=== PATIENT | male | born 1950 | race Caucasian/White ===

== ENCOUNTER 2018-03-09 08:32 | Inpatient (IN) | payer MEDICARE, OTHER ==
[~2018-03-09] VITALS: Ht 165.1 cm; Wt 95.3 kg
[2018-03-09] VITALS (18 sets, daily range): BP systolic 102–186; BP diastolic 48–108
[~2018-03-09 08:32] MED LIST: ASPIRIN EC81 M1 PO; COREG25 MG PO; DESYREL50 MG; DILTIAZEM 24HR180 M1 PO; EFFIENT10 MG PO; FLUOXETINE HCL40 MG PO; GLYBURIDE 5 MG T5 M1 PO; IMDUR; IMDUR 30 MG TAB30 M1 PO; KLOR-CON 1010 MEQ PO; LANTUS SUBQ; LASIX 20 MG TAB20 MG PO; LOTENSIN; LOTENSIN HCT 21 EACH PO; NITROGLYCERIN0.4 MG SUBLING; NITROQUICK0.4 MG SL; ONE DAILY COMP1 EAC1 PO; PRINIVIL20 MG PO; PROZAC 20 MG20 M1 PO; PROZAC40 MG PO; REQUIP5 MG PO; TEGRETOL XR100 MG; TEGRETOL XR200 MG PO; TOPROL XL50 MG PO; TRAZODONE HCL100 MG PO; TYLENOL325 MG PO; VERAPAMIL ER240 MG PO; XANAX 0.5 MG0.5 MG PO; ZOCOR40 MG PO
[2018-03-09 09:14] LABS: HEMATOCRIT 44.1 % (42.0-52.0); HEMOGLOBIN 14.9 gm/dL (14.0-18.0); MCH 30.7 pg (26.0-34.0); MCHC 33.9 g/dL (28.0-37.0); MCV 90.5 fL (80.0-100.0); MPV 8.3 fl. (7.2-11.1); RBC 4.87 mil/uL (4.50-6.00); RDW-CV 14.1 % (10.5-14.5); WBC 11.5 thou/uL (4.0-11.0)
[2018-03-09 09:27] LABS: ANION GAP 6 mmol/L (7-16); BUN 13 mg/dL (7-18); CALCIUM 8.8 mg/dL (8.5-10.1); CHLORIDE 97 mmol/L (98-107); CO2 30 mmol/L (21-32); CREATININE 0.7 mg/dL (0.6-1.3); GLUCOSE 201 mg/dL (70-99); SODIUM 133 mmol/L (136-145)
[2018-03-09 09:31] LABS: ALBUMIN 3.9 g/dL (3.4-5.0); ALKALINE PHOSPHATASE 77 U/L (46-116); CHOLESTEROL 247 mg/dL (<200); HDL CHOLESTEROL 34 mg/dL (>40); LDL CHOLESTEROL 164 mg/dL (<100); SGOT 16 U/L (15-37); SGPT 25 U/L (30-65); TC:HDL 7.3 Ratio (Not establshd); TOTAL BILIRUBIN 0.7 mg/dL (<0.1-1.0); TOTAL PROTEIN 8.1 g/dL (6.4-8.2); TRIGLYCERIDE 246 mg/dL (<150); VLDL 49 mg/dL (<40)
[2018-03-09 09:34] LABS: APTT 26.5 Seconds (25.0-31.3); INR 1.1; PROTIME 10.3 Seconds (9.20-11.50)
[2018-03-09 09:35] LABS: SERUM ASSESSMENT Clear
[2018-03-09] MEDS ORDERED: TRESIBA FL100 UNIT/1 SUBQ (17:16)
[2018-03-09] MEDS ORDERED: NORCO 5-325 TA1 EACH PO (17:26)
[2018-03-09] MEDS ORDERED: PSYLLIUM FIBE0.52 GM PO (17:28)
--- NOTE | 2018-03-09 17:58 | NUR ---
PT ARRIVED TO ROOM 003 VIA BED FROM DATA ENTRY TECHNICIAN AT 1610. PT ASSESSMENT CHARTED. TOLERATING 2L NC WITH O2 SATURATION 98-99%. PT REPORTS SOME ANXIETY. IV FLUIDS STOPPED AT 1610. BURKS IN PLACE. VSS AT THIS TIME. PT IS ON BEDREST FOR 6 HOURS WHICH IS UP AT 2200.
--- NOTE | 2018-03-09 23:49 | NUR ---
INITAL ASSESMENT COMPLETED AT 193. PT'S LEFT GROIN SITE SOFT, INTACT. NO BLEEDING, BRUISING OR HEMATOMA. PT REPORTED CHRONIC BACK PAIN AND ANXIETY. PT REPORTED NORMAL DOSAGE OF MEDS. DR AGUDELO NOTIFIED. RECIEVED ORDERS TO INCREASE DOSAGES ON HOME MEDS. PT GIVEN PRN XANAX AND HYDROCODONE WITH GOOD RESULTS. PT OFF BEDREST AT 2129. PT INSTRUCTED TO CALL NURSE IF BLEEDING OR SWELLING AT SITE. PT INSTRUCTED TO SPLINT GROIN SITE BEFORE COUGHING OR BEARING DOWN. PT SLEEPING AT THIS TIME. CALL LIGHT IN REACH, PT DEMONSTRATES PROPER USE.
[2018-03-10] VITALS (16 sets, daily range): BP systolic 120–179; BP diastolic 56–89
[2018-03-10 04:50] LABS: HEMATOCRIT 40.8 % (42.0-52.0); HEMOGLOBIN 13.9 gm/dL (14.0-18.0); MCH 30.5 pg (26.0-34.0); MCV 89.7 fL (80.0-100.0); MPV 7.7 fl. (7.2-11.1); RBC 4.55 mil/uL (4.50-6.00); RDW-CV 14.5 % (10.5-14.5); WBC 11.7 thou/uL (4.0-11.0)
[2018-03-10 05:15] LABS: ALBUMIN 3.4 g/dL (3.4-5.0); CALCIUM 8.5 mg/dL (8.5-10.1); CREATININE 0.7 mg/dL (0.6-1.3); POTASSIUM 3.6 mmol/L (3.5-5.1); TOTAL BILIRUBIN 0.8 mg/dL (<0.1-1.0); TOTAL PROTEIN 6.7 g/dL (6.4-8.2)
[2018-03-10 05:24] LABS: TROPONIN-I LEVEL 1.21 ng/mL (<0.06)
--- NOTE | 2018-03-10 06:42 | NUR ---
galvez catheter discontinued.
--- NOTE | 2018-03-10 10:23 | EKG ---
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: : 1950 Requested By: Reza Odom Order Number: [id number] [place] MD: Edu Brewer Measurements Intervals [place] Rate: 60 P: 51 [place]: 188 QRS: 29 QRSD: 126 T: 235 QT: 426 QTc: 426 Interpretive Statements Sinus rhythm Left atrial enlargement LVH with secondary repolarization abnormality Anterior ST elevation, probably due to LVH Compared to ECG 12/09/2015 09:05:29 Atrial abnormality now present ST (T wave) deviation now present Myocardial infarct finding no longer present Electronically Signed On 03-10-2018 10:23:05 CDT by Edu Brewer [email or web address] <ELECTRONICALLY SIGNED> By: Edu Brewer MD, FAC 03/10/18 1023 0956 0956 Edu Brewer MD, FAC /EPI
--- NOTE | 2018-03-10 10:24 | EKG ---
[place] [address] ELECTROCARDIOGRAM REPORT Name: TARA HUANG Room: [address] IN M.R.#: [id number] Admission: 03/09/18 Attend Phys: Rzea Odom MD, Discharge: Date of : 52 Report #: [id number] THIS REPORT FOR: //name// [facility] Test Date: 2018-03-09 Test Time: 15:31:52 Pat Name: TARA HUANG Department: Room: [facility] Gender: M Character Actress: : 1950 Requested By: Reza Odom Order Number: [id number] [place] MD: Edu Brewer Measurements Intervals [place] Rate: 63 P: 64 [place]: 164 QRS: 11 QRSD: 130 T: 227 QT: 435 QTc: 446 Interpretive Statements Sinus rhythm Probable left atrial enlargement LVH with secondary repolarization abnormality Anterior ST elevation, probably due to LVH Compared to ECG 12/09/2015 09:05:29 ST (T wave) deviation now present Myocardial infarct finding no longer present Electronically Signed On 03-10-2018 10:24:37 CDT by Edu Brewer [email or web address] <ELECTRONICALLY SIGNED> By: Edu Brewer MD, FACC 03/10/18 1024 1531 1531 Edu Brewer MD, FAC /EPI
--- NOTE | 2018-03-10 10:45 | NUR ---
SPOKE WITH PT AND . PT ADMITTED AFTER CATH YESTERDAY, PLAN IS TO DISCHARGE HOME TOMORROW PER NURSING. PT STATES HE HAS BEEN FAIRLY INDEP. HE USES A CANE, HE SAID HE IS 'KIND OF UNSTEADY ON MY FEET SOMETIMES.' PT SAID HE NEEDS TO PUT SOME GRAB BARS IN HIS SHOWER, 'JUST HAVEN'T GOTTEN AROUND TO DOING IT YET.' PT AND DENY ANY DISCHARGE NEEDS. DISCUSSED ROLE OF CASE MGT, WILL CONTINUE TO FOLLOW.
--- NOTE | 2018-03-10 11:13 | CARD ---
[facility] [address] [place] [address] CARDIAC CATH REPORT Name: SALTARA Room: [address] IN [facility].#: [id number] Admission: 03/09/18 Attend Phys: Reza Odom MD, Discharge: Date of : 52 Report #: [id number] THIS REPORT FOR: //name// APPROVED REPORT Study performed: 03/09/2018 12:48:58 Patient Details Patient Status: Out-Patient Room #: The patient is a 67 year-old male Event Personnel Reza Odom Scoreboard Operator, Lo Rosario RN RN, Garry Banuelos, Shan Perez (Ailyn) Lei Mueller John Slubber Hand Procedures Performed Left Heart Cath w/or w/o Coronaries; cutaneous coronary intervention with deployment of drug-eluting stents at the sites of 90% mid LAD in-stent restenosis and tandem 90% distal LAD stenoses Indication Unstable angina Risk Factors Hypercholesterolemia, Hypertension Previous Procedures/Diagnoses Previous PCI, Previous PA Admission/Lab Medications/Medications given during procedure Aspirin, Platelet Aff. Inhib., Angiomax bolus and infusion Procedure Narrative The patient was brought electively to the Cardiac Catheterization Laboratory and was prepped and draped in a sterile manner. The left femoral was infiltrated with 1% Lidocaine subcutaneous anesthesia. A 6fr Ultimum Sheath sheath was inserted into the Right Femoral Artery. Coronary angiography was performed using coronary diagnostic catheters. The left coronary system was accessed and visualized with a Diagnostic JL4 catheter. The left ventricle was accessed and visualized with a Diagnostic Straight pigtail catheter. Left ventricular/Aortic Valve gradient assessed via catheter pullback. Closure device was deployed with a [place] [address] CARDIAC CATH REPORT Name: SALTARA Room: [address]#: [id number] Admission: 03/09/18 Attend Phys: Reza Odom MD, Discharge: Date of : 52 Report #: [id number] 6Fr. Intraoperative Conscious Sedation Sedation start time: 13:10 Case end Time: 14:18 Fentanyl 25 mcg Versed 2 mg Fluoro Time: 17.8 minutes Dose: DAP [id number] cGycm2 3359 mGy Contrast Type and Amount: Visipaque 700 ml Diagnostic Cath Left Main 0 percent narrowing LAD 30% proximal LAD narrowing with 90% mid LAD in-stent restenosis and tandem 90% distal LAD stenosis Circumflex Dominant vessel with 50 and 60% proximal narrowings and tandem 90 and 80% narrowings in the first marginal branch of the circumflex with 80% stenosis of a small subbranch of the distal first marginal Right Coronary Previously defined nondominant vessel with 90% proximal narrowing Left Ventriculography The left ventricle is mildly dilated in size with contractility. The left ventricular ejection fraction is estimated to be 30%. Left ventricular wall motion abnormalities are present. There is no mitral insufficiency. The inferior wall is akinetic IVUS Intravascular Ultrasound was performed on the distal left anterior descending artery segment vessel. A Guide Catheter was used to engage the 6F XB LAD 3.5 ostium. A IG: ProwaterFlex 180CM was used. Hemodynamics The aortic pressure is 149/70 mmHg with a mean of 100 mmHg. The left ventricular pressure is 158/16 mmHg with a mean of mmHg. The left ventricular end diastolic pressure is 35 mmHg. There was no gradient across the aortic valve upon pullback. PCI Technique Lesion Anticoagulation was achieved with Angiomax. Patient was preloaded with Angiomax IV 14 mg per kg. Percutaneous coronary intervention was performed on the distal left anterior descending artery segment. The lesion stenosis prior to intervention was 90% with OBED 3 flow. A 6F XB LAD 3.5 Guide Catheter was used to engage the ostium. A IG: [place] [address] CARDIAC CATH REPORT Name: TARA HUANG Room: [address]#: [id number] Admission: 03/09/18 Attend Phys: Reza Odom MD, Discharge: Date of : 52 Report #: [id number] ProwaterFlex 180CM Interventional Guidewire was used to cross the lesion. BALLOON DILATION A Balloon catheter Mini Trek RX 2.0 X 12 was inserted and inflated up to 8atm for 11seconds. Additional Inflation: 10atm for 13seconds. Additional Inflation: 12atm for 11seconds. STENT DEPLOYMENT A drug-eluting stent Xience Alpine RX 2.25X12, 2.25x8 was inserted and inflated up to 6atm for 13seconds. Additional Inflation: 6atm for 7seconds. Final angiography reveals 0 % stenosis with OBED 3 flow. PCI Technique Lesion Percutaneous coronary intervention was performed on the distal left anterior descending artery segment. A 6F XB LAD 3.5 Guide Catheter was used to engage the ostium. A IG: ProwaterFlex 180CM Interventional Guidewire was used to cross the lesion. STENT DEPLOYMENT A drug-eluting stent Xience Alpine RX 2.25X08 was inserted and inflated up to 6atm for 11seconds. Additional Inflation: 7atm for 7seconds. Additional Inflation: 8atm for 9seconds. PCI Technique Lesion 2 Percutaneous Coronary Intervention was performed on the distal left anterior descending artery segment. Patient was preloaded with Angiomax IV 14 mg per kg. The lesion stenosis prior to intervention was 90% with OBED 3 flow. A 6F XB LAD 3.5 Guide Catheter was used to engage the ostium. A IG: ProwaterFlex 180CM Interventional Guidewire was used to cross the lesion. Balloon Dilation A Balloon catheter Mini Trek RX 2.0 X 12 was inserted and inflated up to 14atm for 12seconds. Additional Inflation: 14atm for 11seconds. Additional Inflation: 16atm for 11seconds. Stent Deployment A drug-eluting stent Xience Alpine RX 2.25X15 was inserted and inflated up to 8.00atm for 9seconds. Additional Inflation: 10atm for 11seconds. Final angiography reveals 0 % stenosis with OBED [address] [facility] [address] [place] [address] CARDIAC CATH REPORT Name: TARA HUANG Room: [address] IN M.R.#: [id number] Admission: 03/09/18 Attend Phys: Reza Odom MD, Discharge: Date of : 52 Report #: [id number] PCI Technique Lesion Percutaneous coronary intervention was performed on the mid left anterior descending artery segment. A 6F XB LAD 3.5 Guide Catheter was used to engage the ostium. A IG: ProwaterFlex 180CM Interventional Guidewire was used to cross the lesion. STENT DEPLOYMENT A drug-eluting stent Xience Alpine RX 2.5X8 was inserted and inflated up to 10atm for 9seconds. Additional Inflation: 11atm for 8seconds. PCI Technique Lesion 3 Percutaneous coronary intervention was performed on the mid LAD. The lesion stenosis prior to intervention was 90% with OBED 3 flow. Stent Deployment A drug-eluting stent Xience Alpine RX 2.5X8 was inserted and inflated up to 10atm for 10seconds. Final angiography reveals 0 % stenosis with OBED 3 flow. Conclusion #1 significant coronary artery disease characterized by the following: A 30% proximal LAD narrowing with 90% mid LAD in-stent restenosis and tandem 90% distal LAD stenosis B nondominant circumflex with 50 and 60 % proximal narrowings and tandem 90 and 80% narrowings of the first marginal branch of the circumflex C previously defined nondominant right coronary artery with 90% proximal narrowing #2 moderately severe impairment in global left ventricular systolic function, estimate ejection fraction 30% with inferior wall akinesis #3 severe elevation of left ventricular end-diastolic pressure at rest #4 successful percutaneous coronary intervention with deployment of drug-eluting stents at the sites of 90% mid and tandem 90% distal LAD [address] [address] CARDIAC CATH REPORT Name: TARA HUANG Room: [address] IN .R.#: [id number] Admission: 03/09/18 Attend Phys: Reza Odom MD, Discharge: Date of : 52 Report #: [id number] stenosis with 0% residual narrowing at both sites following stent deployment and OBED-3 flow the distal vessel. Recommendations Cardiac Risk Reduction Program Aggressive Medical Therapy Medications Administered Aspirin (any) Ticagrelor Diagnostic Cath Approved by: Reza Odom MD Date/Time: 03/10/2018 11:11:46 <ELECTRONICALLY SIGNED> By: Reza Odom MD, [facility] 03/10/18 1113 111 [id number] Odom MD, FACC /INF
--- NOTE | 2018-03-10 11:16 | NUR ---
PT REPORTED FEELING SHORT OF AIR. O2 96% ON ROOM AIR, NO NOTICIABLE LABORED BREATHING. PT PLACED ON 2L NC. PT REPORTS BREATHING HAS IMPROVED AND THAT THIS HAS BEEN HAPPENING FOR WEEKS. CARDIOLOGY NOTIFIED RECEIVED ORDER TO CONTINUE MONITORING. PT ASKED ABOUT TAKING CARVEDILOL. OVERNIGHT PT'S HEART RATE IN 50'S THIS AM PT'S HEART RATE IN 60'S. LOWER DOSAGE OF CARVEDILOL STARTED. PT SAT IN CHAIR FOR ABOUT 40 MINUTES THIS AM. WILL CONTINUE TO ENCOURAGE AMBULATION AND TO SIT IN CHAIR.
--- NOTE | 2018-03-10 14:06 | EKG ---
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: : 1950 Requested By: Reza Odom Order Number: [id number] [place] MD: Bret Florez Measurements Intervals [place] Rate: 71 P: 48 [place]: 179 QRS: 11 QRSD: 123 T: 247 QT: 402 QTc: 437 Interpretive Statements Sinus rhythm Probable left atrial enlargement LVH with secondary repolarization abnormality Anterior ST elevation, probably due to LVH Compared to ECG 03/09/2018 15:31:52 No significant changes Electronically Signed On 03-10-2018 14:05:47 CDT by Bret Florez [email or web address] <ELECTRONICALLY SIGNED> By: Bret Florez MD, [facility] 03/10/18 1405 1343 1343 Bret Florez MD, [facility] /EPI
--- NOTE | 2018-03-10 15:18 | NUR ---
PT SAT IN CHAIR FOR BREAKFAST AND LUNCH. PT AMBULATED TO SINK AND BRUSHED TEETH. URINE NOT MEASURED ONE TIME URINAL SPILT ON FLOOR.
--- NOTE | 2018-03-10 17:00 | NUR ---
PT TRANSFERED TO TELE.
[2018-03-11] VITALS: BP 121/60
[2018-03-11 04:00] VITALS: BP 162/84
--- NOTE | 2018-03-11 04:32 | NUR ---
Assumed care of patient at 1930. Patient slept well throughout the night after receiving PRN pain medication and Xanax. Patient's left groin soft and intact; no bruising noted. Patient A&O x4; SBA to bathroom with cane. Sinus rhythm noted on telemetry. Left AC IVL intact and flushed. Patient wore 2L NC last night after nursing staff checked his O2 on room air and found it to be 77%. Patient asymptomatic and was in a deep sleep at the time. O2 saturation on 2L remained 92-97%. No other complaints/complications. Call light within reach. Will continue to monitor.
[2018-03-11 05:37] LABS: CALCIUM 8.9 mg/dL (8.5-10.1); CREATININE 0.9 mg/dL (0.6-1.3); POTASSIUM 3.9 mmol/L (3.5-5.1)
[2018-03-11 08:34] VITALS: BP 141/84
[2018-03-11 08:45] VITALS: BP 121/50; BP 162/80
--- NOTE | 2018-03-11 10:00 | NUR ---
ASSUMED CARE OF PT AT 0730 AFTER RECEIVING REPORT FROM NOC ALEX CARREON. PT IS A & O X4, SITTING IN CHAIR. TECHNICAL RECRUITER IN PLACE, SR W/1ST DEG BLOCK. IV SL. GROIN SITE C/D/I. CALL LIGHT IN REACH.
[2018-03-11 10:29] VITALS: BP 162/80
[2018-03-11] MEDS ORDERED: EFFIENT10 MG PO (10:40)
--- NOTE | 2018-03-11 12:15 | D ---
[facility] [address] [place] [address] DISCHARGE SUMMARY Name: TARA HUANG Room: [address] IN M.R.#: [id number] Admission: 03/09/18 Attend Phys: Reza Odom MD, Discharge: Date of : 52 Report #: [id number] THIS REPORT FOR: //name// CC: NATTY Odom Physician staff DATE OF SERVICE: 03/11/2018 FINAL DISCHARGE DIAGNOSES: 1. Unstable angina. 2. Coronary artery disease, status post percutaneous coronary intervention of the left anterior descending. 3. Ischemic cardiomyopathy. 4. Acute on chronic combined heart failure. 5. Hypertension. 6. Hyperlipoproteinemia. 7. Obesity. PROCEDURES: 03/09/2018 -- left heart catheterization, selective coronary arteriography, percutaneous coronary intervention with deployment of one stent in the mid LAD and three in the distal LAD. HOSPITAL COURSE: The patient is a very pleasant 67-year-old male with a long history of coronary artery disease and multiple prior percutaneous coronary interventions. Recently, he has noted increasing episodes of chest tightness and is utilizing nitrates on a daily basis. The angina has been following an unstable pattern. There is underlying hypertension, hypercholesterolemia and a known ischemic cardiomyopathy. In that context, he underwent cardiac catheterization on 03/09/2018, which revealed sequential significant LAD stenosis with 90% mid LAD in-stent restenosis and tandem 90% distal left anterior descending stenoses. He also had a 50% and 60% proximal circumflex narrowing with 90% narrowing in the first marginal branch of the circumflex. Given this data, I performed percutaneous coronary intervention on the LAD, deploying one 2.5 x 8 mm Xience Alpine drug-eluting stent in the mid LAD and three 2.25 x 15, 2.25 x 12 and 2.25 x 8 drug-eluting stents, Xience Alpine in the distal LAD with 0% residual narrowing at the stented site and OBED 3 flow of the distal vessel. The patient has underlying schizophrenia and developed panic reaction during the procedure. Systemic pressure runoff in the context of ischemic cardiomyopathy with an ejection fraction of 25-30%, he developed acute heart failure. This required morphine, oxygen, sitting up and IV Lasix as well [place] [address] DISCHARGE SUMMARY Name: TARA HUANG Room: [address]#: [id number] Admission: 03/09/18 Attend Phys: Reza Odom MD, Discharge: Date of : 52 Report #: [id number] gradual resolution of his heart failure and a prompt diuresis. By later that afternoon, he was quite comfortable. He felt weak the following day, I elected to allow the day for increased activity and modest additional diuresis with the plan to discharge him on 03/11/2018. He was placed on dual antiplatelet therapy constituted by prasugrel or Effient and aspirin. DISCHARGE MEDICATIONS: Included aspirin 81 mg b.i.d., carvedilol 25 mg b.i.d., Prozac 40 mg daily, furosemide 80 mg daily, insulin degludec 40 units subcutaneously at bedtime, lisinopril 40 mg daily, multivitamins with mineral 1 tablet daily, potassium chloride 20 mEq daily, prasugrel or Effient 10 mg daily, ropinirole or Requip 4 mg at bedtime and trazodone 100 mg at bedtime. The patient is scheduled to return to see me in 2 weeks for followup. Thus he is discharged to home in satisfactory condition on 03/11/2018 on the aforementioned medications with followup in two weeks in our office. <ELECTRONICALLY SIGNED> By: Reza Odom MD, [facility] 03/11/18 1215 0854 [id number] Odom MD, [facility] /nt
--- NOTE | 2018-03-11 12:20 | NUR ---
REVIEWED PT DC INSTRUCTIONS AND MEDICATION LIST WITH PT/FAMILY. ANSWERED QUESTIONS TO PT/FAMILY SATISFACTION. SCRIPTS AND PRINTED NEW MED EDUCATION GIVEN. PT LEFT UNIT VIA WC WITH ASSIST OF NURSING STAFF. FAMILY MEMBER TO TRANSPORT PT HOME VIA PERSONAL VEHICLE.
== END 2018-03-11 12:15 | disposition home or self-care (01) | DRG 246 ==
LOC: M.CL 08:32 → M.TBA-CV 15:11 → M.ICU 15:11 → M.2W 03-10 16:52
PROVIDERS: ADMIT Internal Medicine
PROC: B2151ZZ Fluoroscopy of Left Heart using Low Osmolar Contrast (ICD-10-PCS; principal; 2018-03-10)
PROC: B240ZZ3 Ultrasonography of Single Coronary Artery, Intravascular (ICD-10-PCS; principal; 2018-03-10)
PROC: 027037Z Dilation of Coronary Artery, One Artery with Four or More Drug-eluting Intraluminal Devices, Percutaneous Approach (ICD-10-PCS; principal; 2018-03-10)
PROC: B2111ZZ Fluoroscopy of Multiple Coronary Arteries using Low Osmolar Contrast (ICD-10-PCS; principal; 2018-03-10)
PROC: 4A023N7 Measurement of Cardiac Sampling and Pressure, Left Heart, Percutaneous Approach (ICD-10-PCS; principal; 2018-03-10)
DX: T82.855A Stenosis of coronary artery stent, initial encounter (principal); I50.43 Acute on chronic combined systolic (congestive) and diastolic (congestive) heart failure; I25.110 Atherosclerotic heart disease of native coronary artery with unstable angina pectoris; E11.9 Type 2 diabetes mellitus without complications; I25.5 Ischemic cardiomyopathy; I11.0 Hypertensive heart disease with heart failure; E78.00 Pure hypercholesterolemia, unspecified; E66.9 Obesity, unspecified; Y83.8 Other surgical procedures as the cause of abnormal reaction of the patient, or of later complication, without mention of misadventure at the time of the procedure; Z68.34 Body mass index [BMI] 34.0-34.9, adult; Z79.4 Long term (current) use of insulin; Z79.82 Long term (current) use of aspirin; Z79.899 Other long term (current) drug therapy; Y92.89 Other specified places as the place of occurrence of the external cause

== ENCOUNTER 2018-04-05 08:55 | Observation (INO) | payer MEDICARE, OTHER ==
[~2018-04-05] VITALS: Ht 167.6 cm; Wt 93.9 kg
--- NOTE | ~2018-04-05 | H ---
[address] [address] HISTORY AND PHYSICAL Name: TARA HUANG Room: [address] [place]#: [id number] Admission: 04/05/18 Attend Phys: Reza Odom MD, Discharge: 04/06/18 Date of : 52 Report #: [id number] THIS REPORT FOR: //name// Please refer to the History and Physical performed in the physician's office. By: 0702Medical Records Staff ROBERTO /MATTHEW
[~2018-04-05 08:55] MED LIST changes: +NORCO 5-325 TA1 EACH PO; +PSYLLIUM FIBE0.52 GM PO; +TRESIBA FL100 UNIT/1 SUBQ
[2018-04-05 09:13] VITALS: BP 175/84
[2018-04-05 09:35] LABS: HEMATOCRIT 42.6 % (42.0-52.0); HEMOGLOBIN 14.2 gm/dL (14.0-18.0); MCHC 33.4 g/dL (28.0-37.0); MCV 89.7 fL (80.0-100.0); MPV 7.8 fl. (7.2-11.1); RBC 4.75 mil/uL (4.50-6.00); WBC 9.9 thou/uL (4.0-11.0)
[2018-04-05 09:48] LABS: ANION GAP 5 mmol/L (7-16); BUN 14 mg/dL (7-18); CALCIUM 8.9 mg/dL (8.5-10.1); CHLORIDE 101 mmol/L (98-107); CO2 28 mmol/L (21-32); CREATININE 0.8 mg/dL (0.6-1.3); GLUCOSE 154 mg/dL (70-99); POTASSIUM 3.6 mmol/L (3.5-5.1); SODIUM 134 mmol/L (136-145)
[2018-04-05 09:50] LABS: PROTIME 10.7 Seconds (9.20-11.50)
[2018-04-05 09:53] LABS: ALBUMIN 3.6 g/dL (3.4-5.0); ALKALINE PHOSPHATASE 81 U/L (46-116); CHOLESTEROL 215 mg/dL (<200); HDL CHOLESTEROL 26 mg/dL (>40); LDL CHOLESTEROL 138 mg/dL (<100); SERUM ASSESSMENT Clear; SGOT 14 U/L (15-37); SGPT 22 U/L (30-65); TC:HDL 8.3 Ratio (Not establshd); TOTAL BILIRUBIN 0.4 mg/dL (<0.1-1.0); TOTAL PROTEIN 7.5 g/dL (6.4-8.2); TRIGLYCERIDE 257 mg/dL (<150); VLDL 51 mg/dL (<40)
[2018-04-05 11:44] VITALS: BP 157/75
[2018-04-05 12:15] VITALS: BP 163/92
[2018-04-05 13:09] VITALS: BP 166/83
[2018-04-05 14:50] VITALS: BP 172/92
[2018-04-05] MEDS ORDERED: NORCO 10-325 T1 EACH PO (15:43)
--- NOTE | 2018-04-05 17:26 | EKG ---
[place] [address] ELECTROCARDIOGRAM REPORT Name: TARA HUANG Room: [address] M.R.#: [id number] Admission: 04/05/18 Attend Phys: Reza Odom MD, Discharge: Date of : 52 Report #: [id number] THIS REPORT FOR: //name// [facility] Test Date: 2018-04-05 Test Time: 10:04:08 Pat Name: TARA HUANG Department: Room: 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: : 1950 Requested By: Reza Odom Order Number: [id number] [place] MD: Reza Odom Measurements Intervals [place] Rate: 57 P: 44 [place]: 201 QRS: 16 QRSD: 121 T: 263 QT: 436 QTc: 425 Interpretive Statements Sinus rhythm Probable left ventricular hypertrophy Nonspecific T abnormalities, inferior leads Compared to ECG 03/10/2018 13:43:16 T-wave abnormality now present Myocardial infarct finding now present Early repolarization no longer present ST (T wave) deviation still present Electronically Signed On 04-05-2018 17:26:03 CDT by Reza Odom [email or web address] <ELECTRONICALLY SIGNED> By: Reza Odom MD, [facility] 04/05/18 1726 1004 1004 Reza Odom MD, [facility] /EPI
--- NOTE | 2018-04-05 17:29 | EKG ---
[place] [address] ELECTROCARDIOGRAM REPORT Name: SALTARA Carmona Room: [address] M.R.#: [id number] Admission: 04/05/18 Attend Phys: Reza Odom MD, Discharge: Date of : 52 Report #: [id number] THIS REPORT FOR: //name// [facility] Test Date: 2018-04-05 Test Time: 11:57:15 Pat Name: TARA HUANG Department: Room: [facility] Gender: M Hospitality Ambassador: : 1950 Requested By: Reza Odom Order Number: [id number] [place] MD: Reza Odom Measurements Intervals [place] Rate: 58 P: 46 [place]: 198 QRS: 19 QRSD: 125 T: 265 QT: 410 QTc: 403 Interpretive Statements Sinus rhythm Left atrial enlargement LVH with secondary repolarization abnormality Anterior ST elevation, probably due to LVH Compared to ECG 03/10/2018 13:43:16 No significant changes Electronically Signed On 04-05-2018 17:28:56 CDT by Reza Odom [email or web address] <ELECTRONICALLY SIGNED> By: Reza Odom MD, [facility] 04/05/18 1728 1157 1157 Reza Odom MD, [facility] /EPI
[2018-04-05 20:00] VITALS: BP 185/81
[2018-04-06] VITALS: BP 176/88
[2018-04-06 03:57] VITALS: BP 158/82
[2018-04-06 04:35] LABS: HEMATOCRIT 42.1 % (42.0-52.0); HEMOGLOBIN 13.9 gm/dL (14.0-18.0); MCH 30.1 pg (26.0-34.0); MPV 7.8 fl. (7.2-11.1); RBC 4.63 mil/uL (4.50-6.00); RDW-CV 13.8 % (10.5-14.5); WBC 11.8 thou/uL (4.0-11.0)
[2018-04-06 05:17] LABS: ALBUMIN 3.7 g/dL (3.4-5.0); ALKALINE PHOSPHATASE 75 U/L (46-116); ANION GAP 7 mmol/L (7-16); BUN 10 mg/dL (7-18); CALCIUM 8.8 mg/dL (8.5-10.1); CHLORIDE 104 mmol/L (98-107); CO2 30 mmol/L (21-32); CREATININE 0.6 mg/dL (0.6-1.3); GLUCOSE 129 mg/dL (70-99); POTASSIUM 4.1 mmol/L (3.5-5.1); SGOT 11 U/L (15-37); SGPT 21 U/L (30-65); SODIUM 141 mmol/L (136-145); TOTAL BILIRUBIN 0.6 mg/dL (<0.1-1.0); TOTAL PROTEIN 7.2 g/dL (6.4-8.2); TROPONIN-I LEVEL <0.06 ng/mL (<0.06)
[2018-04-06 10:17] VITALS: BP 179/90
--- NOTE | 2018-04-06 16:46 | EKG ---
[place] [address] ELECTROCARDIOGRAM REPORT Name: TARA HUANG [address] [id number] Admission: 04/05/18 Attend Phys: Reza Odom MD, Discharge: 04/06/18 Date of : 52 Report #: [id number] THIS REPORT FOR: //name// [facility] Test Date: 2018-04-06 Test Time: 08:54:18 Pat Name: TARA HUANG Department: Room: [facility] Gender: M Supervisor Crack Off: : 1950 Requested By: Reza Oodm Order Number: [id number] [place] MD: Reza Odom Measurements Intervals [place] Rate: 72 P: 37 [place]: 171 QRS: 31 QRSD: 127 T: 262 QT: 388 QTc: 425 Interpretive Statements Sinus rhythm LVH with secondary repolarization abnormality Anterior ST elevation, probably due to LVH Compared to ECG 04/05/2018 11:57:15 Atrial abnormality no longer present ST (T wave) deviation still present Electronically Signed On 04-06-2018 16:45:56 CDT by Reza Odom [email or web address] <ELECTRONICALLY SIGNED> By: Reza Odom MD, [facility] 04/06/18 1645 0854 0854 Reza Odom MD, [facility] /EPI
--- NOTE | 2018-04-06 18:35 | D ---
[facility] [address] [place] [address] DISCHARGE SUMMARY Name: SALTARA Room: [address] [place]#: [id number] Admission: 04/05/18 Attend Phys: Reza Odom MD, Discharge: 04/06/18 Date of : 52 Report #: [id number] THIS REPORT FOR: //name// CC: NATTY [facility] Reza Odom Physician staff DATE OF SERVICE: 04/06/2018 FINAL DISCHARGE DIAGNOSES: 1. Unstable angina. 2. Coronary artery disease, status post multiple prior percutaneous coronary interventions with percutaneous coronary intervention to the circumflex on 04/05/2018. 3. Ischemic cardiomyopathy. 4. Chronic combined heart failure. 5. Hypertension. 6. Hyperlipoproteinemia. 7. Obesity. 8. Chronic obstructive pulmonary disease. PROCEDURES: 04/06/2018 - left heart catheterization, selective coronary arteriography, percutaneous coronary intervention to the circumflex with deployment of 3 drug-eluting stents. HOSPITAL COURSE: The patient is a very pleasant 67-year-old male with complex coronary artery disease and an ischemic cardiomyopathy in that context. Approximately, 1 month ago, he underwent complex stenting of the LAD with a good angiographic result. The circumflex was not approached in that setting. His anginal pattern has improved, but does persist to some degree. He was noted to have significant proximal and first marginal stenosis at the prior catheterization. He was readmitted on 04/05/2018 in the context of recurrent angina, underwent catheterization, which revealed widely patent LAD stents. He had 90% proximal first marginal with 80% mid first marginal narrowing and 80% proximal circumflex narrowing. I deployed 2 drug-eluting stents in the first marginal and one 2.75 x 12-mm New Era Integrity drug-eluting stent in the proximal circumflex with 0, 10 and 0% residual narrowing and OBED 3 flow of the distal circumflex. The patient did well post-procedurally. There was good hemostasis at the left femoral site of catheterization. Laboratory data on 04/06/2018 revealed sodium 141, potassium 4.1, BUN 10, creatinine 0.6. Troponin less than 0.06, hemoglobin 13.9, white blood cell count 11,800 with 268,000 platelets. DISCHARGE MEDICATIONS: He ambulated in the hall[place] [address] DISCHARGE SUMMARY Name: TARA HUANG Room: [address] [place]#: [id number] Admission: 04/05/18 Attend Phys: Reza Odom MD, Discharge: 04/06/18 Date of : 52 Report #: [id number] discharged to home on the following medications: Aspirin 81 mg b.i.d., carvedilol 25 mg b.i.d., fluoxetine 40 mg daily, furosemide 80 mg daily, insulin degludec 40 units subcutaneously at bedtime, lisinopril 40 mg daily, multivitamin with minerals 1 tablet daily, potassium 20 mEq daily, prasugrel or Effient 10 mg daily, ropinirole 4 mg at bedtime, trazodone 100 mg at bedtime, alprazolam 0.5 mg every 6 hours as needed, acetaminophen 650 mg every 6 hours as needed, hydrocodone/acetaminophen 1 tablet every 6 hours as needed, p.r.n. sublingual nitroglycerin, and psyllium fiber 0.52 grams daily on a p.r.n. basis. The patient is scheduled to return to see me on 05/30/2018 at 1330. He is discharged to home in stable condition on the aforementioned medications with followup as iterated above. <ELECTRONICALLY SIGNED> By: Reza Odom MD, FACC 04/06/18 1835 1721 1750Reza Odom MD, FACC /nt
--- NOTE | 2018-04-13 10:09 | CARD ---
[facility] [address] [place] [address] CARDIAC CATH REPORT Name: TARA HUANG Room: [address] [place]#: [id number] Admission: 04/05/18 Attend Phys: Reza Odom MD, Discharge: 04/06/18 Date of : 52 Report #: [id number] THIS REPORT FOR: //name// APPROVED REPORT Study performed: 04/05/2018 09:05:31 Patient Details Patient Status: Out-Patient Room #: The patient is a 67 year-old male Event Personnel Dr. Odom Procedures Performed Left heart catheterization selective coronary arteriographyy and percutaneous coronary intervention with stenting of the proximal circumflex and first marginal branch of the circumflex Indication Unstable angina Risk Factors Hypercholesterolemia, Coronary Artery DiseaseHypertension Previous Procedures/Diagnoses Previous PCI, Previous CT Admission/Lab Medications/Medications given during procedure Aspirin, Platelet Aff. Inhib., Angiomax bolus and infusion Procedure Narrative The patient was brought electively to the Cardiac Catheterization Laboratory and was prepped and draped in a sterile manner. The left femoral was infiltrated with 1% Lidocaine subcutaneous anesthesia. A 6 Portuguese sheath was inserted into the left femoral artery. Coronary angiography was performed using coronary diagnostic catheters. The left coronary system was accessed and visualized with a Diagnostic catheter. The left ventricle was accessed and visualized with a Diagnostic catheter. Left ventricular/Aortic Valve gradient assessed via catheter pullback. Pre-demployment femoral angiogram was performed . Closure device was deployed with a 6 Fr Angioseal. [place] [address] CARDIAC CATH REPORT Name: SALTARA Mathew Room: [address] [place]#: [id number] Admission: 04/05/18 Attend Phys: Reza Odom MD, Discharge: 04/06/18 Date of : 52 Report #: [id number] Diagnostic Cath Left Main 0% narrowing LAD 30% proximal LAD narrowing with widely patent mid LAD stents and 40% distal LAD narrowing Circumflex 50% proximal circumflex stenosis with 80% narrowing just distal to this and tandem 90 and 80% first marginal stenosis Right Coronary Nondominant vessel with 90% proximal narrowing as per prior angiogram Left Ventriculography Left Ventriculography was not performed. Hemodynamics The aortic pressure is 130/70 mmHg with a mean of mmHg. The left ventricular pressure is 18 mmHg with a mean of mmHg. There was no gradient across the aortic valve upon pullback. PCI Technique Lesion Anticoagulation was achieved with Angiomax. Percutaneous coronary intervention was performed on the proximal circumflex. The lesion stenosis prior to intervention was 80% with OBED 3 flow. BALLOON DILATION A Balloon catheter 2.75 x 12 NC trek was inserted and inflated up to 16atm for 10seconds. STENT DEPLOYMENT A 2.75 x 8 margarita stent drug-eluting was inserted and inflated up to 12atm for 10seconds. Final angiography reveals 0 % stenosis with OBED 3 flow. PCI Technique Lesion 2 Percutaneous Coronary Intervention was performed on the first marginal branch of the circumflex. The lesion stenosis prior to intervention was 90% with OBED 3 flow. Stent Deployment A drug-eluting stent 2.0 by 8, 2.0 x 15 margarita was inserted and inflated up to 12atm for 10seconds. Final angiography reveals 0 % stenosis with OBED 3 flow. Conclusion #1 significant coronary [place] [address] CARDIAC CATH REPORT Name: TARA HUANG Room: [address] [place]#: [id number] Admission: 04/05/18 Attend Phys: Reza Odom MD, Discharge: 04/06/18 Date of : 52 Report #: [id number] following: A 30% proximal LAD narrowing with widely pain mid and distal LAD stents with 40% distal LAD narrowing B dominant circumflex with 50% proximal narrowing followed by 80% proximal stenosis with tandem 90 and 80% first marginal narrowings C previously defined nondominant right coronary with 90% proximal narrowing #2 modest elevation of left ventricular end-diastolic pressure at rest #3 successful percutaneous coronary intervention with deployment of a drug-eluting stent at the site of 80% proximal circumflex stenosis with 0% residual narrowing #4 successful percutaneous coronary intervention with deployment of sequential drug-eluting stents at the sites of 90 and 80% first marginal narrowing with 0% residual narrowing at both sites following stent deployment and OBED-3 flow to the distal vessel Recommendations Cardiac Risk Reduction Program Aggressive Medical Therapy Medications Administered Aspirin (any) Prasugrel Diagnostic Cath Approved by: Reza Odom MD Date/Time: 04/13/2018 10:07:57 <ELECTRONICALLY SIGNED> By: Reza Odom MD, [facility] 04/13/18 1009 1009 1009Reza Odom MD, [facility] /INF
== END 2018-04-06 13:20 | disposition home or self-care (01) ==
LOC: M.CL 08:55 → M.2W 11:24 → M.TBA-CV 11:24 → M.2W 14:54
PROVIDERS: ADMIT Internal Medicine
DX: I25.110 Atherosclerotic heart disease of native coronary artery with unstable angina pectoris (principal); I11.0 Hypertensive heart disease with heart failure; I50.40 Unspecified combined systolic (congestive) and diastolic (congestive) heart failure; J44.9 Chronic obstructive pulmonary disease, unspecified; E78.5 Hyperlipidemia, unspecified; I25.5 Ischemic cardiomyopathy; E66.9 Obesity, unspecified

== ENCOUNTER 2018-11-22 08:50 | Inpatient (IN) | payer MEDICARE, OTHER ==
[~2018-11-22] VITALS: Ht 167.6 cm; Wt 95.3 kg
[2018-11-22] VITALS (16 sets, daily range): BP systolic 110–198; BP diastolic 54–104
[~2018-11-22 08:50] MED LIST changes: +NORCO 10-325 T1 EACH PO
[2018-11-22 09:53] LABS: HEMATOCRIT 38.9 % (42.0-52.0); MCH 29.2 pg (26.0-34.0); MCHC 33.5 g/dL (28.0-37.0); MCV 87.1 fL (80.0-100.0); RBC 4.47 mil/uL (4.50-6.00); RDW-CV 14.2 % (10.5-14.5); WBC 11.9 thou/uL (4.0-11.0)
[2018-11-22 10:09] LABS: ANION GAP 7 mmol/L (7-16); BUN 17 mg/dL (7-18); CALCIUM 9.1 mg/dL (8.5-10.1); CHLORIDE 101 mmol/L (98-107); CHOLESTEROL 207 mg/dL (<200); CO2 29 mmol/L (21-32); CREATININE 0.9 mg/dL (0.6-1.3); GLUCOSE 249 mg/dL (70-99); HDL CHOLESTEROL 26 mg/dL (>40); LDL CHOLESTEROL 140 mg/dL (<100); POTASSIUM 3.5 mmol/L (3.5-5.1); SERUM ASSESSMENT Clear; SODIUM 137 mmol/L (136-145); TRIGLYCERIDE 206 mg/dL (<150); VLDL 41 mg/dL (<40)
[2018-11-22] MEDS ORDERED: FLONASE 0.05%50 MCG NASAL (10:17)
[2018-11-22] MEDS ORDERED: COLACE100 MG PO (10:17)
[2018-11-22] MEDS ORDERED: MULTI VITAMIN1 EACH PO (10:17)
[2018-11-22 10:23] LABS: APTT 27.4 Seconds (25.0-31.3); PROTIME 10.5 Seconds (9.20-11.50)
--- NOTE | 2018-11-22 13:48 | CARD ---
[facility] [place] [facility] [address] [place] [address] CARDIAC CATH REPORT Name: TARA HUANG Room: [address] [place]#: [id number] Admission: 11/22/18 Attend Phys: Reza Odom MD, Discharge: Date of : 52 Report #: [id number] THIS REPORT FOR: //name// APPROVED REPORT Study performed: 11/22/2018 10:01:40 Patient Details The patient is a 67 year-old male Event Personnel Reza Odom Vamper, Radhika Nick RN Soda Fountain Clerk, Abisai WangIS Monitor, Shan Perez (R) Scrub Procedures Performed Left Heart Cath w/or w/o Coronaries [id number] [facility] JAH Place w/wo Plasty Single CIRC [id number] JAH Place w/wo Plasty Addl BR OM 1 C9601 DESADDL Indication Unstable angina Risk Factors Hypercholesterolemia, Hypertension, Diabetes Admission/Lab Medications/Medications given during procedure Aspirin, Platelet Aff. Inhib., Angiomax bolus and infusion Procedure Narrative The patient was brought electively to the Cardiac Catheterization Laboratory and was prepped and draped in a sterile manner. The left femoral was infiltrated with 2% Lidocaine subcutaneous anesthesia. A [place] 6 FR sheath was inserted into the LFA. Coronary angiography was performed using coronary diagnostic catheters. The right coronary system was accessed and visualized with a JR4 catheter. The left coronary system was accessed and visualized with a JL4 catheter. The left ventricle was accessed and visualized with a Straight PIG catheter. Left ventricular/Aortic Valve gradient assessed via catheter pullback. Pre-demployment femoral angiogram was performed . Closure device was deployed with a Fr Angioseal STS 6Fr. The patient tolerated the procedure well and there were no complications associated with the procedure. There was no hematoma. Intraoperative Conscious Sedation Fentanyl 100 [place] [address] CARDIAC CATH REPORT Name: TARA HUANG Room: [address] [place]#: [id number] Admission: 11/22/18 Attend Phys: Reza Odom MD, Discharge: Date of : 52 Report #: [id number] Dose: 3157 mGy Contrast Type and Amount: Visipaque 380 ml Diagnostic Cath Left Main 0% narrowing LAD 40% ostial proximal narrowing with 60% mid vessel in-stent narrowing Circumflex 50% ostial proximal narrowing with 90% stenosis of the proximal portion extending into the prominent first marginal branch with 80% stenosis of the mid circumflex Right Coronary 100% previously defined proximal occlusion Hemodynamics The aortic pressure is 156/61 mmHg with a mean of 75 mmHg. The left ventricular pressure is 153/13 mmHg with a mean of mmHg. The left ventricular end diastolic pressure is 28 mmHg. There was no gradient across the aortic valve upon pullback. PCI Technique Lesion Anticoagulation was achieved with Angiomax. Patient was preloaded with Angiomax IV 14 ml. Percutaneous coronary intervention was performed on the mid circumflex artery segment. The lesion stenosis prior to intervention was 80% with OBED 3 flow. A 6F XB LAD 3.5 Guide Catheter was used to engage the ostium. A IG: ProwaterFlex 180CM Interventional Guidewire was used to cross the lesion. BALLOON DILATION A Balloon catheter Trek RX 2.5 X 12 was inserted and inflated up to 14.00atm for 17seconds. STENT DEPLOYMENT A stent Stanton RX Stent 2.5X12mm,2.25x8 was inserted and inflated up to 16.00atm for 6seconds. Final angiography reveals 10 % stenosis with OBED 3 flow. PCI Technique Lesion 2 Percutaneous Coronary Intervention was performed on the first obtuse marginal branch segment. The lesion stenosis prior to intervention was 90% with OBED 3 flow. Balloon Dilation A Balloon catheter Trek RX 2.5 X 12 was inserted and inflated up to 15.00atm for 11seconds. [place] [address] CARDIAC CATH REPORT Name: SALFRANCHESCATARA Mathew Room: [address] [place]#: [id number] Admission: 11/22/18 Attend Phys: Reza Odom MD, Discharge: Date of : 52 Report #: [id number] Stent Deployment A stent Guru RX Stent 2.76B06te was inserted and inflated up to 16.00atm for 12seconds. Final angiography reveals 0 % stenosis with OBED 3 flow. Conclusion #1 significant multivessel coronary arteries characterized by the following: A 40% ostial proximal LAD narrowing with widely patent stents throughout the vessel and 60% mid vessel in-stent narrowing B codominant circumflex with 50% ostial proximal narrowing and 90% narrowing of the proximal portion extending into a prominent first marginal branch with 80% mid vessel stenosis C 100% previously defined total occlusion of the right coronary artery proximally #2 mild systemic systolic hypertension with moderately severe elevation of left ventricular end-diastolic pressure at rest #3 successful percutaneous coronary intervention with deployment of sequential drug-eluting stents at the site of 80% mid circumflex stenosis with 10% residual narrowing #5 successful percutaneous coronary intervention with deployment of drug-eluting stent from the proximal right artery into a prominent first marginal branch with 0% residual narrowing and OBED-3 flow to the distal vessel Recommendations Cardiac Risk Reduction Program Aggressive Medical Therapy Medications Administered Aspirin ([place]) [place] [address] CARDIAC CATH REPORT Name: SALTARA Mathew [address]#: [id number] Admission: 11/22/18 Attend Phys: Reza Odom MD, Discharge: Date of : 52 Report #: [id number] Diagnostic Cath Approved by: Reza Odom MD Date/Time: 11/22/2018 13:46:23 <ELECTRONICALLY SIGNED> By: Reza Odom MD, [facility] 11/22/18 1348 1348 1348Reza Odom MD, [facility] /INF
--- NOTE | 2018-11-22 14:43 | EKG ---
[place] [address] ELECTROCARDIOGRAM REPORT Name: SALTARA Carmona Room: [address]R.#: [id number] Admission: 11/22/18 Attend Phys: Reza Odom MD, Discharge: Date of : 52 Report #: [id number] THIS REPORT FOR: //name// [facility] Test Date: 2018-11-22 Test Time: 09:42:54 Pat Name: TARA HUANG Department: Room: [facility] Gender: M Scale Adjuster: : 1950 Requested By: Reza Odom Order Number: [id number] Reading MD: Reza Odom Measurements Intervals [place] Rate: 61 P: 53 DE: 188 QRS: 21 QRSD: 125 T: 241 QT: 433 QTc: 437 Interpretive Statements Sinus rhythm Consider left atrial enlargement LVH Compared to ECG 04/06/2018 08:54:18 Left ventricular hypertrophy persists Early repolarization no longer present ST (T wave) deviation persists Electronically Signed On 11-22-2018 14:42:52 CDT by Reza Odom [email or web address] <ELECTRONICALLY SIGNED> By: Reza Odom MD, [facility] 11/22/18 1442 0942 0942 Reza Odom MD, [facility] /EPI
--- NOTE | 2018-11-22 14:44 | EKG ---
[place] [address] ELECTROCARDIOGRAM REPORT Name: TARA HUANG Room: [address] M.R.#: [id number] Admission: 11/22/18 Attend Phys: Reza Odom MD, Discharge: Date of : 52 Report #: [id number] THIS REPORT FOR: //name// [facility] Test Date: 2018-11-22 Test Time: 13:30:04 Pat Name: TARA HUANG Department: Room: [facility] Gender: M Hand Profiler: : 1950 Requested By: Reza Odom Order Number: [id number] Syed MD: Reza Odom Measurements Intervals [place] Rate: 60 P: 90 SC: 203 QRS: 15 QRSD: 121 T: 225 QT: 450 QTc: 450 Interpretive Statements Sinus rhythm IVCD, consider LVH Compared to ECG 04/06/2018 08:54:18 Left ventricular hypertrophy persists Early repolarization no longer present ST (T wave) deviation persists Electronically Signed On 11-22-2018 14:44:02 CDT by Reza Odom [email or web address] <ELECTRONICALLY SIGNED> By: Reza Odom MD, [facility] 11/22/18 1444 1330 1330 Reza Odom MD, [facility] /EPI
--- NOTE | 2018-11-22 15:22 | NUR ---
RECEIVED REPORT AND ASSUMED CARE OF PT AT 1400.PT RECEIVED FROM PROGRAM SPECIALIST.TRACING SR ON THE MONITOR.IV PATENT WITH FLUID INFUSING.ON RA.A/OX4.RT GROIN CATH CLEAN DRY AND INTACT.NI HAEMOTOMA.NO BLEEDING AND PAIN.VSS.ALL ADMISSION PROCESS COMPLETED.AND PAPER SIGNED.PT COMPLAINS OF ANXIETY.MEDS GIVEN PER ORDER.PT EDUCATED ON BLEEDING PECAUTIONS AND POSITIONING OF CATH SITE.PT HAS REST LEG SYNDROME.TAKES MEDICATION FOR THAT.NO ANY OTHER SKIN ISSUES.CALL LIGHT AND FALL PRECAUTIONS IN PLACE.WILL CONTINUE TO MONITOR.
--- NOTE | 2018-11-22 17:24 | NUR ---
PT IS A/OX4.TRACING SR ON THE MONITOR.IV PATENT WITH FLUID INFUSING.POST CATH VS MONITORED AND CHARTED.CATH SITE CLEAN DRY AND INTACT.PT EDUCATED ON IMMOBILIZATION OF CATH SITE.MED GIVEN TO RELIEVE ANXIETY PER ORDER.HOURLY ROUNDING COMPLETED.CALL LIGHT AND FALL PRECAUTIONS IN PLACE.WILL CONTINUE TO MONITOR.
--- NOTE | 2018-11-22 17:39 | NUR ---
I have reviewed the documentation by ALEX ASTUDILLO from 1405 to 793 and I concur with it.
[2018-11-22] MEDS ORDERED: REQUIP XL8 MG PO (21:18)
[2018-11-23] VITALS (9 sets, daily range): BP systolic 125–198; BP diastolic 58–95
--- NOTE | 2018-11-23 05:06 | NUR ---
ASSUMED PT CARE AT APPROX 1930. PT IS AWAKE AND ORIENTED X4. VSS. 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 PT DENIES CHEST PAIN. POST CARDIAC CATH INSERTION SITE INTACT, WITH SMALL BRUISING NOTED AND A SMALL AMOUNT OF SEROUSANGUINOUS DISCHARGE ON THE GAUZE-SIZE REMAINED THE SAME THROUGHOUT THE SHIFT. SOA NOTED AT APPROX 0400, LUNG SOUNDS DIMINISHED AT THE BASES, MILD WHEEZING NOTED, BLOOD TINGED WHITE SPUTUM NOTED. BP IS 188/92mmhg. O2 SAT 90-91%. IVF STOPPED, MAINTAINED ON HIGH BACK REST, ENCOURAGED TO TAKE SLOW DEEP BREATHS, PLACED ON O2 SUPPORT AT 1L/NC. DR JASMINE INFORMED. NO NEW ORDERS RECIEVED. PT WAS ABLE TO REST A LITTLE BIT, AT APPROX 0430 BP: 164/78, O2 SAT 96% HR 76. PT CLOSELY MONITORED, HOURLY ROUNDING DONE FOR PT SAFETY. CALL LIGHT WITHIN REACH.
[2018-11-23 05:36] LABS: HEMATOCRIT 38.1 % (42.0-52.0); HEMOGLOBIN 13.2 gm/dL (14.0-18.0); MCHC 34.5 g/dL (28.0-37.0); MCV 86.9 fL (80.0-100.0); MPV 8.1 fl. (7.2-11.1); RBC 4.39 mil/uL (4.50-6.00); RDW-CV 14.4 % (10.5-14.5); WBC 9.5 thou/uL (4.0-11.0)
[2018-11-23 06:03] LABS: ALBUMIN 3.3 g/dL (3.4-5.0); CALCIUM 8.9 mg/dL (8.5-10.1); CREATININE 0.7 mg/dL (0.6-1.3); POTASSIUM 3.5 mmol/L (3.5-5.1); TOTAL BILIRUBIN 0.6 mg/dL (<0.1-1.0); TROPONIN-I LEVEL 0.33 ng/mL (<0.06)
--- NOTE | 2018-11-23 10:57 | EKG ---
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: : 1950 Requested By: Reza Odom Order Number: [id number] Reading MD: Edu Brewer Measurements Intervals [place] Rate: 70 P: 47 WI: 184 QRS: -4 QRSD: 122 T: 209 QT: 408 QTc: 441 Interpretive Statements Sinus rhythm Probable left atrial enlargement IVCD, consider atypical LBBB Baseline wander in lead(s) II,aVF Compared to ECG 11/22/2018 13:30:04 No significant changes Electronically Signed On 11-23-2018 10:57:35 CDT by Edu Brewer [email or web address] <ELECTRONICALLY SIGNED> By: Edu Brewer MD, [facility] 11/23/18 1057 0949 0949 Edu Brewer MD, [facility] /EPI
--- NOTE | 2018-11-23 11:29 | NUR ---
RECEIVED REPORT AND ASSUMED CARE OF PT AT 0730.PT IS A/OX4.TRACING SR ON THE MONITOR.IV PATENT AND SALINE LOCKED.ON 2L NC.PT SOUNDS WEEZY AND COMPLAINTS OF SOA.DR NOTIFIED AND IV LASIX AND POTTASIUM ONE TIME DOSE GIVEN PER ORDER.PT LOOKS MUCH BETTER THAN BEFORE.CATH SITE CLEAN DRY AND INTACT.BOOD PRESSURE PILLS GIVEN FOR HIGH BP.CALL LIGHT AND FALL PRECAUTIONS IN PLACE.WILL CONTINUE TO MONITOR.
[2018-11-23] MEDS ORDERED: ATORVASTATIN CA40 MG PO (12:50)
--- NOTE | 2018-11-23 17:56 | NUR ---
PT IS A/OX4.TRACING SR ON THE MONITOR.IV PATENT AND SALINE LOCKED.IV LASIX 2 TIME DOSE PER ORDER GIVEN FOR FLUID OVERLOAD.ANTIHYPERTENSIVE PRN MEDS GIVEN FOR HIGH BLOOD PRESSURE ALOND WITH THE SCHEDULED MEDS.PT LOOKS BETTER THAN THIS MORNING.NO COMPLAINTS OF CHEST PAIN.AND SOA.COMPLAINTS OF ANXIETY AND PAIN ON BACK.MANAGED BY MEDS.HRLY ROUNDING DONE FOR SAFETY.POSSIBLE DISCHARGE TOMORROW PER BIODIESEL OPERATIONS MANAGER.WILL CONTINUE TO MONITOR.
[2018-11-24 00:02] VITALS: BP 136/69
--- NOTE | 2018-11-24 03:27 | NUR ---
ASSUMED PT CARE AT APPROX 1930. PT IS AWAKE AND ORIENTED X4. VSS. GAS PLANT WORKER IN PLACE TRACING SR. REASSESSMENT DONE AND CHARTED. PT DENIES SOA. PT C/O BACK PAIN RELIEVED BY PAIN MEDS GIVEN PER SEP. PT WAS ABLE TO SLEEP MOST OF THE NIGHT. CALL LIGHT WITHIN REACH. HOURLY ROUNDING DONE FOR PT SAFETY.
[2018-11-24 04:00] VITALS: BP 128/82
[2018-11-24 04:52] LABS: CALCIUM 8.8 mg/dL (8.5-10.1); CREATININE 0.9 mg/dL (0.6-1.3); POTASSIUM 3.7 mmol/L (3.5-5.1)
[2018-11-24 11:15] VITALS: BP 198/95
--- NOTE | 2018-11-25 11:27 | D ---
[facility] [address] [place] [address] DISCHARGE SUMMARY Name: TARA HUANG Room: [address] [place] M.R.#: [id number] Admission: 11/23/18 Attend Phys: Reza Odom MD, Discharge: 11/24/18 Date of : 52 Report #: [id number] THIS REPORT FOR: //name// CC: NATTY Odom DATE OF SERVICE: 11/24/2018 FINAL DISCHARGE DIAGNOSES: 1. Unstable angina. 2. Coronary artery disease. 3. Status post percutaneous coronary intervention to the circumflex. 4. Hypertension. 5. Hyperlipidemia. 6. Type 2 diabetes. 7. Ischemic cardiomyopathy. PROCEDURES: 11/22/2018 - left heart catheterization, selective coronary arteriography, percutaneous coronary intervention with deployment of sequential drug-eluting stents in the posterior division of the circumflex and a single drug-eluting stent in the proximal circumflex extending into a prominent marginal branch. The patient is a very pleasant 67-year-old male with hypertension, hyperlipidemia, diabetes and complex coronary artery disease with an ischemic cardiomyopathy in that context. Recently, he has noted increased chest discomfort and dyspnea with modest activity, suggesting a pattern of angina, which has been unstable. In that context, I performed cardiac catheterization on 11/22/2018 and that study revealed 40% ostial proximal LAD narrowing with 50% ostial proximal circumflex narrowing, 90% narrowing of the circumflex extending into the first marginal and 80% mid circumflex narrowing. The right coronary artery has been previously defined to be totally occluded. In this context, I performed percutaneous coronary intervention on the mid circumflex, deploying two drug-eluting stents with a 10% residual narrowing and percutaneous coronary intervention in the first marginal from the proximal circumflex into the first marginal with 0% residual narrowing. The patient's troponin angeline inconsequentially to 0.33. With the contrast and volume infused, he developed a modest heart failure, which was responsive to diuresis. I did diurese him on the day of 11/23/2018 and he was discharged to home on 11/24/2018 on the following medications: Aspirin 81 mg b.i.d., carvedilol 25 mg b.i.d., docusate 100 mg b.i.d., Prozac 60 mg daily, fluticasone 1 spray b.i.d., furosemide 80 mg daily, insulin degludec 40 units at bedtime, lisinopril 40 [place] [address] DISCHARGE SUMMARY Name: TARA HUANG Mathew Room: [address]#: [id number] Admission: 11/23/18 Attend Phys: Reza Odom MD, Discharge: 11/24/18 Date of : 52 Report #: [id number] daily, multivitamins with mineral one tablet daily, potassium chloride 20 mEq daily, prasugrel or Effient 10 mg daily, ropinirole or Requip 8 mg at bedtime, trazodone 100 mg at bedtime, acetaminophen 650 mg p.r.n., alprazolam 0.5 mg q.6h. p.r.n., hydrocodone/acetaminophen one tablet every six hours p.r.n. pain, p.r.n. sublingual nitroglycerin, and p.r.n. I will plan to see him in followup on 12/26/2018 at 1300 in the [place] office. Thus, the patient is discharged to home in stable condition on the aforementioned medications with followup as iterated above. <ELECTRONICALLY SIGNED> By: Reza Odom MD, [facility] 11/25/18 1127 0921 1557Jogeoffrey Odom MD, FACC /nt
== END 2018-11-24 11:50 | disposition home or self-care (01) | DRG 246 ==
LOC: M.CL 08:50 → M.TBA-CV 12:05 → M.2W 12:05
PROVIDERS: ADMIT Internal Medicine
PROC: 4A023N7 Measurement of Cardiac Sampling and Pressure, Left Heart, Percutaneous Approach (ICD-10-PCS; principal; 2018-11-22)
PROC: B211YZZ Fluoroscopy of Multiple Coronary Arteries using Other Contrast (ICD-10-PCS; principal; 2018-11-22)
PROC: 027135Z Dilation of Coronary Artery, Two Arteries with Two Drug-eluting Intraluminal Devices, Percutaneous Approach (ICD-10-PCS; principal; 2018-11-22)
PROC: B41JYZZ Fluoroscopy of Other Lower Arteries using Other Contrast (ICD-10-PCS; principal; 2018-11-22)
DX: I25.110 Atherosclerotic heart disease of native coronary artery with unstable angina pectoris (principal); I50.33 Acute on chronic diastolic (congestive) heart failure; I10 Essential (primary) hypertension; E78.5 Hyperlipidemia, unspecified; I25.5 Ischemic cardiomyopathy; E11.9 Type 2 diabetes mellitus without complications; Z79.899 Other long term (current) drug therapy

== ENCOUNTER 2021-01-28 07:47 | Observation (INO) | payer MEDICARE, OTHER ==
[~2021-01-28] VITALS: Ht 167.6 cm; Wt 96.2 kg
[2021-01-28] VITALS (15 sets, daily range): BP systolic 105–188; BP diastolic 62–92
--- NOTE | ~2021-01-28 | H ---
[address] [address] HISTORY AND PHYSICAL Name: TARA HUANG Mathew Room: [address] [place]#: [id number] Admission: 01/28/21 Attend Phys: Reza Odom MD, Discharge: 01/29/21 Date of : 52 Report #: [id number] THIS REPORT FOR: cc: Lennie Butler MD, Crystal L. MD [facility],Medical Records Staff ~ For History and Physical please refer to the handwritten note in the patient's medical record. By: [id number] Records Staff [facility] /MATTHEW
[~2021-01-28 07:47] MED LIST changes: +ATORVASTATIN CA40 MG PO; +COLACE100 MG PO; +CRESTOR20 MG PO; +FLONASE 0.05%50 MCG NASAL; +FLUOXETINE HCL60 MG PO; +KLOR-CON M2020 MEQ PO; +LASIX 40 MG TAB40 MG PO; +MULTI VITAMIN1 EACH PO; +NORCO5 PO; +REQUIP XL8 MG PO; +TRAZODONE HCL50 MG PO; +VENTOLIN HFA 1818 GM INH
[2021-01-28 08:41] LABS: HEMATOCRIT 36.8 % (42.0-52.0); MCH 31.8 pg (26.0-34.0); MCHC 35.4 g/dL (28.0-37.0); MCV 89.8 fL (80.0-100.0); RBC 4.1 mil/uL (4.50-6.00); RDW-CV 13.4 % (10.5-14.5); WBC 10.6 thou/uL (4.0-11.0)
[2021-01-28 08:52] LABS: APTT 24.9 Seconds (25.0-31.3); PROTIME 10.7 Seconds (9.20-11.50)
[2021-01-28 08:53] LABS: ALBUMIN 3.9 g/dL (3.4-5.0); ALKALINE PHOSPHATASE 68 U/L (46-116); ANION GAP 7 mmol/L (7-16); BUN 20 mg/dL (7-18); CALCIUM 8.7 mg/dL (8.5-10.1); CHLORIDE 103 mmol/L (98-107); CHOLESTEROL 130 mg/dL (<200); CO2 29 mmol/L (21-32); CREATININE 1.1 mg/dL (0.6-1.3); GLUCOSE 109 mg/dL (70-99); HDL CHOLESTEROL 38 mg/dL (>40); LDL CHOLESTEROL 54 mg/dL (<100); POTASSIUM 4.2 mmol/L (3.5-5.1); SERUM ASSESSMENT Clear; SGOT 27 U/L (15-37); SGPT 43 U/L (30-65); SODIUM 139 mmol/L (136-145); TC:HDL 3.4 Ratio (Not establshd); TOTAL BILIRUBIN 0.4 mg/dL (<0.1-1.0); TOTAL PROTEIN 7.8 g/dL (6.4-8.2); TRIGLYCERIDE 193 mg/dL (<150); VLDL 39 mg/dL (<40)
--- NOTE | 2021-01-28 16:31 | EKG ---
[place] [address] ELECTROCARDIOGRAM REPORT Name: TARA HUANG Room: [address] M.R.#: [id number] Admission: 01/28/21 Attend Phys: Ronda Sands Discharge: Date of : 52 Date of Service: 01/28/21 0841 Report #: [id number] THIS REPORT FOR: //name// [facility] Test Date: 2021-01-28 Test Time: 08:41:00 Pat Name: TARA HUANG Department: Room: [facility] Gender: M Certified Ophthalmic Assistant: : 1950 Requested By: Reza Odom Order Number: [id number] Reading MD: Reza Odom Measurements Intervals [place] Rate: 55 P: 32 HI: 180 QRS: 1 QRSD: 131 T: 184 QT: 459 QTc: 439 Interpretive Statements Sinus rhythm LVH with secondary repolarization abnormality High ST segment takeoff most compatible with early repolarization Compared to ECG 11/23/2018 09:49:22 Left ventricular hypertrophy now present Early repolarization persists Anterolateral ST segment depression has remitted Electronically Signed On 01-28-2021 16:31:44 CDT by Reza Odom [email or web address] <ELECTRONICALLY SIGNED> By: Reza Odom MD, [facility] 01/28/21 1631 0 0 Reza Odom MD, [facility] /EPI
--- NOTE | 2021-01-28 16:38 | EKG ---
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: : 1950 Requested By: Reza Odom Order Number: [id number] Reading MD: Reza Odom Measurements Intervals [place] Rate: 53 P: 55 ND: 203 QRS: 11 QRSD: 135 T: 269 QT: 450 QTc: 423 Interpretive Statements Sinus rhythm IVCD, consider atypical incomplete LBBB Compared to ECG 01/28/2021 08:41:00 IVCD persists Early repolarization no longer present Myocardial infarct finding no longer present Electronically Signed On 01-28-2021 16:38:02 CDT by Reza Odom [email or web address] <ELECTRONICALLY SIGNED> By: Reza Odom MD, [facility] 01/28/21 1638 1145 1145 Reza Odom MD, [facility] /EPI
--- NOTE | 2021-01-28 17:18 | CARD ---
[address] [address] CARDIAC CATH REPORT Name: TARA HUANG Room: [address] [place]#: [id number] Admission: 01/28/21 Attend Phys: Reza Odom MD, Discharge: Date of : 52 Report #: [id number] THIS REPORT FOR: cc: Lennie Butler MD, Crystal L. MD Holkins, John M. MD [facility] ~ APPROVED REPORT Study performed: 01/28/2021 09:12:41 Patient Details Patient Status: Out-Patient Room #: The patient is a 70 year-old male Event Personnel Reza Odom Employee Communications Specialist, Kerry Vuong RN RN, Garry Banuelos Kramer, Jessie RTR Monitor Procedures Performed Art Access - L femoral artery Left Heart Cath w/or w/o Coronaries JAH Place w/wo Plasty Single CIRC JAH Place w/wo Plasty Addl BR OM 1 Hemostasis w/ Mynx Indication Unstable angina Risk Factors Obesity, Peripheral Vascular Disease, Hypercholesterolemia, Hypertension, Diabetes Previous Procedures/Diagnoses Previous PCI Admission/Lab Medications/Medications given during procedure Oxygen Nasal cannula 2 l per min, , Lidocaine Subcut 14 ml, Angiomax IV 14 ml, Angiomax Drip IV 33.7 ml per hr, 0.9% Sodium Chloride IV 100 ml per hr, Aspirin PO 81 mg, Effient PO 60 mg, Lidocaine with epinenphrine Subcut 20 ml Procedure Narrative The patient was brought electively to the Cardiac Catheterization Laboratory and was prepped and draped in a sterile manner. The left femoral was infiltrated with 2% Lidocaine subcutaneous anesthesia. IV conscious sedation was used [place] [address] CARDIAC CATH REPORT Name: TARA HUANG Room: [address] [place]#: [id number] Admission: 01/28/21 Attend Phys: Reza Odom MD, Discharge: Date of : 52 Report #: [id number] monitoring and was performed in the presence of a registered nurse who was an independent trained observer other than the physician performing the procedure. A [place] 6 FR sheath was inserted into the left femoral artery. Coronary angiography was performed using coronary diagnostic catheters. The right coronary system was accessed and visualized with a Diagnostic 6 Fr JR 4 catheter. The left coronary system was accessed and visualized with a Diagnostic 6 Fr JL 4 catheter. The left ventricle was accessed and visualized with a Diagnostic 6 Fr Pigtail catheter. Left ventricular/Aortic Valve gradient assessed via catheter pullback. Left ventriculogram was performed in FLORES projection. Pre-demployment femoral angiogram was performed . Closure device was deployed with a Fr Mynx 6Fr/7Fr. The patient tolerated the procedure well and there were no complications associated with the procedure. There was no hematoma. Intraoperative Conscious Sedation Sedation start time: 940 Case end Time: 1116 Fentanyl 75 mcg Versed 4 mg Fluoro Time: 27.3 minutes Dose: DAP [id number] cGycm2 5047 mGy Contrast Type and Amount: Omnipaque 420 ml Diagnostic Cath Left Main 0% narrowing LAD 40% ostial narrowing with widely patent proximal and mid vessel stents Circumflex 40% ostial narrowing with a 90% mid vessel stenosis and sequential 80% distal circumflex narrowings OM1 80% mid vessel stenosis Right Coronary Nondominant vessel with 80% proximal and mid vessel stenosis Left Ventriculography The left ventricle is normal in size with Modestly decreased contractility. The left ventricular ejection fraction is estimated to be 40%. Left ventricular wall motion abnormalities are present. There is no mitral insufficiency. Inferobasilar akinesis is noted Hemodynamics The aortic pressure is 131/53 mmHg with a mean of 77 mmHg. The left ventricular pressure is 135/6 mmHg with a mean of mmHg. The left ventricular end diastolic pressure is 20 [place] [address] CARDIAC CATH REPORT Name: TARA HUANG Room: [address]#: [id number] Admission: 01/28/21 Attend Phys: Reza Odom MD, Discharge: Date of : 52 Report #: [id number] PCI Technique Lesion Anticoagulation was achieved with Angiomax Drip. Patient was preloaded with Angiomax IV 14 ml. Percutaneous coronary intervention was performed on the mid circumflex artery segment. The lesion stenosis prior to intervention was 90% with OBED 3 flow. A 6F XB LAD 3.5 Guide Catheter was used to engage the left ostium. A BMW 190cm Interventional Guidewire was used to cross the lesion. BALLOON DILATION A Balloon catheter Mini Trek RX 2.0 X 12 was inserted and inflated up to 16.00atm for 12seconds. Additional Inflation: 20.00atm for 11seconds. A balloon catheter Trek RX 2.5 X12 was inserted and inflated up to 14 ALE for 7 seconds and 15 ALE for 7 seconds. STENT DEPLOYMENT A drug-eluting stent Guru RX Stent 2.5X12mm was inserted and inflated up to 12.00atm for 6seconds. Additional Inflation: 14.00atm for 4seconds. Final angiography reveals 10 % stenosis with OBED 3 flow. COMMENTS The PCI to the circumflex was technically complex by virtue of the bifurcation nature of the disease requiring significant lesion preparation and multiple stents deployed in both the first marginal and mid and distal circumflex sites. PCI Technique Lesion 2 Percutaneous Coronary Intervention was performed on the first obtuse marginal branch segment. Patient was preloaded with Angiomax IV 14 ml. The lesion stenosis prior to intervention was 80% with OBED 3 flow. A 6F XB LAD 3.5 Guide Catheter was used to engage the left ostium. A IG: ProwaterFlex 180CM Interventional Guidewire was used to cross the lesion. Balloon Dilation A Balloon catheter Trek RX 2.5 X 8 was inserted and inflated up to 14.00atm for 9seconds. Additional Inflation: 16.00atm for 8seconds. A balloon catheter SC Euphora 2.25 X 12 was inserted and inflated up to 8 ALE for 6 seconds and 16 ALE for 8 seconds. Then reinserted and inflated up to 16 ALE for 5 seconds. Stent Deployment [address] [address] CARDIAC CATH REPORT Name: TARA HUANG Room: [address]#: [id number] Admission: 01/28/21 Attend Phys: Reza Odom MD, Discharge: Date of : 52 Report #: [id number] A drug-eluting stent Guru RX Stent 2.5X8mm was inserted and inflated up to 12.00atm for 8seconds. Additional Inflation: 14.00atm for 7seconds. A drug- eluting stent [place] RX Stent 2.25 X 12mm was inserted and inflated up to 10 ALE for 10 seconds and 16 ALE for 8 seconds. Final angiography reveals 10 % stenosis with OBED 2 flow. PCI Technique Lesion 3 Percutaneous Coronary Intervention was performed on the distal circumflex artery segment. Patient was preloaded with Angiomax IV 14 ml. The lesion stenosis prior to intervention was 80% with OBED 3 flow. A 6F XB LAD 3.5 Guide Catheter was used to engage the left ostium. A BMW 190cm Interventional Guidewire was used to cross the lesion. Stent Deployment A drug-eluting stent Guru RX Stent 2.25X8mm was inserted and inflated up to 12atm for 9seconds. Additional Inflation: 15atm for 7seconds. A drug- eluting stent Guru RX stent 2.0 X 8mm was inserted and inflated up to 8 ALE for 7 seconds and 12 ALE for 4 seconds. Post Stent Deployment Balloon Dilation A Balloon catheter NC Trek RX 2.25x12 was inserted and inflated up to 14atm for 5seconds. Additional Inflation: 18atm for 9seconds. Additional Inflation: 22atm for 6seconds. Final angiography reveals 10 % stenosis with OBED 3 flow. Conclusion 1. Severe multivessel coronary artery disease characterized by the following: A 40% ostial LAD narrowing with widely patent proximal and mid LAD stents B 40% ostial circumflex narrowing with 90% mid vessel in-stent restenosis tandem 80% distal narrowings and 80% first marginal narrowing C nondominant right coronary artery with 80% proximal and mid vessel narrowings 2. Moderate impairment in global LV function, estimated ejection [facility] [address] [place] [address] CARDIAC CATH REPORT Name: TARA HUANG Room: [address] [place]#: [id number] Admission: 01/28/21 Attend Phys: Reza Odom MD, Discharge: Date of : 52 Report #: [id number] fraction being 40% with inferobasilar akinesis 3 modest elevation of left ventricular end-diastolic pressure at rest 4. successful PCI with deployment of sequential drug-eluting stents in the mid and distal circumflex with 10% residual narrowings at both sites and OBED-3 flow the distal circulation 5. Successful PCI with deployment of sequential drug-eluting stents at the site of 80% first marginal branch stenosis with 10% residual narrowing and OBED-3 flow to the distal vessel Recommendations Cardiac Risk Reduction Program Aggressive Medical Therapy Medications Administered Aspirin (any) Prasugrel Diagnostic Cath Approved by: Reza Odom MD Date/Time: 01/28/2021 17:15:41 <ELECTRONICALLY SIGNED> By: Reza Odom MD, [facility] 01/28/21 1718 1718 1718Jogeoffrey Odom MD, FACC /INF
[2021-01-28] MEDS ORDERED: LANTUS SUBQ (18:45)
--- NOTE | 2021-01-28 19:28 | NUR ---
PT ARRIVED FROM [facility] OUT HAND AT 16:14 WITH STAFF. LEFT GROIN SITE CLEAN, DRY AND INTACT, PT LAID FLAT UNTIL 1700. JULISA AT BEDSIDE. PT HAD C/O PAIN AND WAS GIVEN PRN PAIN MEDS ORDERED.
[2021-01-29] VITALS: BP 150/63
[2021-01-29 04:00] VITALS: BP 141/64
[2021-01-29 04:39] LABS: HEMATOCRIT 35.9 % (42.0-52.0); HEMOGLOBIN 12.3 gm/dL (14.0-18.0); MCH 30.8 pg (26.0-34.0); MCHC 34.2 g/dL (28.0-37.0); MCV 90.3 fL (80.0-100.0); MPV 7.9 fl. (7.2-11.1); RBC 3.97 mil/uL (4.50-6.00); RDW-CV 13.6 % (10.5-14.5); WBC 10.2 thou/uL (4.0-11.0)
[2021-01-29 04:55] LABS: ALBUMIN 3.7 g/dL (3.4-5.0); CALCIUM 8.8 mg/dL (8.5-10.1); CREATININE 1.1 mg/dL (0.6-1.3); POTASSIUM 3.9 mmol/L (3.5-5.1); TOTAL BILIRUBIN 0.4 mg/dL (<0.1-1.0); TOTAL PROTEIN 7.2 g/dL (6.4-8.2); TROPONIN-I LEVEL 0.47 ng/mL (<0.06)
[2021-01-29 07:48] VITALS: BP 180/78
[2021-01-29] MEDS ORDERED: EFFIENT10 MG PO (09:52)
[2021-01-29 10:29] VITALS: BP 180/74
--- NOTE | 2021-01-29 11:50 | EKG ---
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: TAMI : 1950 Requested By: Reza Odom Order Number: [id number] Reading MD: Ap Garnica Measurements Intervals [place] Rate: 57 P: 46 MN: 180 QRS: 26 QRSD: 138 T: 257 QT: 463 QTc: 451 Interpretive Statements Sinus rhythm Intraventricular conduction delay Probable LVH with secondary repol abnrm Anterior ST elevation, probably due to LVH Compared to ECG 01/28/2021 11:45:44 No significant changes noted Electronically Signed On 01-29-2021 11:49:49 CDT by Ap Garnica [email or web address] <ELECTRONICALLY SIGNED> By: Ap Garnica MD, FACC 01/29/21 1149 6 6 Ap Garnica MD, FAC /EPI
[2021-01-29 12:10] VITALS: BP 180/74
--- NOTE | 2021-01-29 13:00 | NUR ---
Reviewed discharge teaching with patient; verbalized understanding. IV and panel monitor dc'd. Discharged from unit per WC. taking patient home.
--- NOTE | 2021-01-29 13:21 | NUR ---
Pt is A&O. Resides at home with . Pt has a cane for mobility. No hx of HH or SNF. Goal is home at dc. Pt had heart cath yesterday, anticipate dc to home today, no needs
--- NOTE | 2021-01-30 09:38 | D ---
[facility] [address] [place] [address] DISCHARGE SUMMARY Name: TARA HUANG Room: [address] [place]#: [id number] Admission: 01/28/21 Attend Phys: Reza Odom MD, Discharge: 01/29/21 Date of : 52 Report #: [id number] THIS REPORT FOR: cc: Lennie Butler MD, Crystal L. MD Holkins,Reza Rodgers MD [facility] ~ DATE OF DISCHARGE: 01/29/2021 FINAL DISCHARGE DIAGNOSES: 1. Unstable angina. 2. Coronary artery disease. 3. Status post PCI to the circumflex. 4. Hyperlipidemia. 5. Type 2 diabetes. 6. Chronic obstructive pulmonary disease. 7. Obesity. 8. Ischemic cardiomyopathy. 9. Chronic combined systolic and diastolic heart failure. 10. Hypertension. PROCEDURES: On 01/28/2021 -- left heart catheterization, left ventriculography, selective coronary arteriography, and percutaneous coronary intervention with deployment of drug-eluting stents in the mid circumflex and prominent first marginal branch of the circumflex. HOSPITAL COURSE: The patient is a very pleasant 70-year-old male with complex coronary artery disease in the context of diabetes, hyperlipidemia, and prior cigarette use. He has undergone multiple prior PCIs to the LAD and circumflex. Approximately 10 days to 2 weeks ago, he presented with increasing pattern of angina with episodes occurring frequently and requiring approximately 10-15 sublingual nitroglycerin tablets per week. In this context, I recommended proceeding with cardiac catheterization, which was undertaken on 01/28/2021. That study revealed significant coronary artery disease, characterized by the following: A. Widely patent proximal and mid LAD stents. B. 90% mid circumflex stenosis with 80% first marginal narrowing. C. Nondominant right coronary artery with 80% proximal and midvessel narrowing. There was moderate impairment in global LV function, estimated ejection fraction being 40% with inferobasal akinesis. In this context with a history of unstable angina, elected to proceed with percutaneous coronary intervention, deploying sequential drug-eluting stents in the first marginal and 3 drug-eluting stents in the mid circumflex with 10% [place] [address] DISCHARGE SUMMARY Name: TARA HUANG Room: [address] [place]#: [id number] Admission: 01/28/21 Attend Phys: Reza Odom MD, Discharge: 01/29/21 Date of : 52 Report #: [id number] residual narrowing at both sites following stent deployment and OBED 3 flow to the distal vessel. Troponin angeline minimally to 0.47. He had no chest pain after the procedure and ambulated in the hallways without difficulty with good hemostasis at the left femoral site of catheterization. LABORATORY DATA: On 01/29 revealed a sodium 140, potassium 3.9, BUN 17, creatinine 1.1, glucose 105, hemoglobin 12.3, white blood cell count 10,200, platelets 263,000. DISCHARGE MEDICATIONS: Patient was discharged home on the following medications: Prasugrel or Effient 10 mg daily with a 60 mg periprocedural dose, aspirin 81 mg b.i.d., one multivitamin tablet daily, p.r.n. sublingual nitroglycerin, alprazolam 0.5 mg at bedtime p.r.n. anxiety, acetaminophen p.r.n., carvedilol 25 mg b.i.d., Prozac 40 mg daily, lisinopril 20 mg daily, psyllium p.r.n. as a laxative, fluticasone nasal spray 1 b.i.d., docusate 100 mg b.i.d., ropinirole 8 mg at bedtime, inhaled albuterol 2 puffs p.r.n. shortness of breath, fluoxetine additional dose at 60 mg, furosemide 40 mg daily, Almo 5/325 one tablet every 6 hours p.r.n. pain, potassium chloride 20 mEq daily, trazodone 50 mg at bedtime, rosuvastatin 20 mg daily, Lantus insulin 52 units at bedtime. Patient is scheduled to return to see me in followup on 03/16/2021 at the [facility] office. Therefore, the patient is discharged home in stable condition on the aforementioned medications with followup as described above. <ELECTRONICALLY SIGNED> By: Reza Odom MD, [facility] 01/30/21 0938 0902 1021Reza Odom MD, [facility] /nt
== END 2021-01-29 13:00 | disposition home or self-care (01) ==
LOC: M.CL 07:47 → M.TBA-CV 11:01 → M.2W 16:17
PROVIDERS: ADMIT Internal Medicine; ATTEND Internal Medicine
DX: I25.110 Atherosclerotic heart disease of native coronary artery with unstable angina pectoris (principal); I11.0 Hypertensive heart disease with heart failure; I50.42 Chronic combined systolic (congestive) and diastolic (congestive) heart failure; J44.9 Chronic obstructive pulmonary disease, unspecified; I25.5 Ischemic cardiomyopathy; E78.5 Hyperlipidemia, unspecified; E66.9 Obesity, unspecified; Z68.45 Body mass index [BMI] 70 or greater, adult; Z79.82 Long term (current) use of aspirin; Z79.899 Other long term (current) drug therapy